=== PATIENT | male | born 1945 | race Caucasian/White ===

== ENCOUNTER 2016-08-05 20:12 | Inpatient (IN) | payer OTHER ==
--- NOTE | ~2016-08-05 | CT4 ---
[facility] Service of [facility] RADIOLOGY TEXT RESULTS PATIENT: ANA MEYER LOCATION: [place] [address] : [birth year] UNIT #: [id number] AGE: [address]: Rodolfo De Souza MD SEX: M ORDER DR: [id number] [place] [id number] I MR#: [id number] Acc #: [id number] NAME: ANA MEYER : 1945 SEX: M STUDY DATE/TIME: 08/05/2016 23:03 UNIT: SEDOF ROOM: [id number] STUDY DESCRIPTION: CT Abd and Pelv Wo Cont Attending Physician: Rodolfo De Souza M.D. Ordering Physician: Rodolfo Shane M.D. Primary Care Physician: Abhilash Cavazos M.D. MEDICAL IMAGING REPORT This report is preliminary unless electronic signature is present. EXAM CT abdomen and pelvis INDICATIONS Lower abdominal pain for [address] of the abdomen and pelvis without contrast. Coronal and sagittal reconstructions were obtained. This CT exam was performed with one or more of the following radiation dose reduction techniques: automatic control, adjustment of mA and/or kV according to patient size, and iterative reconstruction. COMPARISON None available. FINDINGS ABDOMEN: There is a moderate hiatal hernia containing the gastric fundus. Noncontrast evaluation of the liver, pancreas, spleen, adrenal glands, and kidneys are within normal limits. No urinary calculi. No hydronephrosis. There is a small bowel obstruction. The proximal small bowel is dilated measuring up to 3.5 cm. There is a gradual transition to decompressed small bowel in the right mid abdomen. No definitive transition point is identified. Patient does appear to have a small lipoma within the region of the transition. This small lipoma appears pedunculated measuring 1.2 x 1.0 cm. This is in the distal small bowel prior to the ileocecal valve. No evidence of abscess or perforation. There is a small volume of ascites. The colon is decompressed. The appendix is normal. [facility] RADIOLOGY TEXT RESULTS PATIENT: ANA MEYER LOCATION: [facility] 218-01 : [birth year] UNIT #: [id number] AGE: [address]: Rodolfo De Souza MD SEX: M ORDER DR: PELVIS: Bladder is unremarkable. There are small direct inguinal hernias bilaterally. IMPRESSION 1. Small bowel obstruction with the proximal small bowel measuring up to 3.5 cm. There is a gradual transition to decompressed small bowel in the right mid abdomen within the distal ileum. No complicating features such as abscess or perforation. 2. The does appear to be a small lipoma near the site of the transition within the small bowel, however, this lipoma does not appear to be large enough for a lead point. 3. Hiatal hernia. 4. Small volume of ascites. Dictated by... Tamir Bush M.D. THIS IS AN ELECTRONICALLY VERIFIED REPORT Tamir Bush M.D. at 08/07/2016 10:30 PM ARACELIS/miguelito TD: 08/06/2016 00:17 JOB #: [id number] MEDICAL IMAGING REPORT Page 1 of 1
--- NOTE | ~2016-08-05 | CR4 ---
[facility] A Service of [facility] RADIOLOGY TEXT RESULTS PATIENT: ANA MEYER LOCATION: [facility] 218-01 : [birth year] UNIT #: [id number] AGE: [address]: Rodolfo De Souza MD SEX: M ORDER DR: [id number] [facility] [address] [place], [place] [address] [id number] I MR#: [id number] Acc #: [id number] NAME: ANA MEYER : 1945 SEX: M STUDY DATE/TIME: 08/06/2016 15:59 UNIT: [facility] ROOM: 218 STUDY DESCRIPTION: CR Abdomen Flat Upright or Dec Attending Physician: Rodolfo De Souza M.D. Ordering Physician: Rodolfo De Souza M.D. Primary Care Physician: Abhilash Cavazos M.D. MEDICAL IMAGING REPORT This report is preliminary unless electronic signature is present EXAM Flat and upright views of the abdomen, 08/06/2016 INDICATIONS 70-year-old male with nausea, vomiting and pain, NG tube removed recently. Obstruction. Symptoms began 3 days ago. TECHNIQUE Flat and upright views of the abdomen were performed. Correlation is made with scanogram CT 08/05/2016. FINDINGS Postop changes of cholecystectomy are present. Residual oral contrast material in the colon. Supine image demonstrates dilated small bowel centrally, measuring up to 3.5-4 cm. There is air within the colon. Overall configuration and appearance is similar to the prior CT. This may reflect an incomplete small bowel obstruction, or small bowel ileus. No new mass effect. IMPRESSION 1. Dilatation of central small bowel persists. There is contrast within the colon. Imaging features may reflect an incomplete small bowel obstruction or small bowel ileus. No free air. Dictated by... Marlon Baker M.D. THIS IS AN ELECTRONICALLY VERIFIED REPORT Marlon Baker M.D. at 08/06/2016 8:43 PM TUAN/americo TD: 08/06/2016 18:28 STS. [facility] A Service of [facility] & [facility] RADIOLOGY TEXT RESULTS PATIENT: ANA MEYER LOCATION: [place] [address] : [birth year] UNIT #: [id number] AGE: [address]: Rodolfo De Souza MD SEX: M ORDER DR: JOB #: [id number] MEDICAL IMAGING REPORT Page 1 of 1 COPY
--- NOTE | ~2016-08-05 | DS ---
Unit #: [id number] #: [id number] Patient: ANA MEYER [id number] [address] [address] [id number] I MR#: [id number] NAME: ANA MEYER. ROOM: 218 Age: 70 Sex: M Admission Date: 08/06/2016 : 1945 Discharge Date: 08/07/2016 Attending Physician: Rodolfo De Souza M.D. Primary Care Physician: Abhilash Cavazos M.D. DISCHARGE SUMMARY DIAGNOSIS Partial small bowel obstruction. HOSPITAL COURSE The patient is a 70-year-old gentleman who presented with abdominal pain and distention. X-ray evaluation was consistent with small bowel obstruction. He was admitted to the hospital, started with NG tube decompression and hydrated. His hospital course was relatively benign. He was advanced with removal of his NG tube after KUB revealed contrast to his colon. He tolerated regular diet without difficulty, had return of bowel function. DISPOSITION The patient will be discharged home. CONDITION UPON DISCHARGE Good condition. DISCHARGE DIET He is to follow a regular diet as tolerated. ACTIVITY Activity levels were discussed. FOLLOW-UP He is to follow up with [facility] on a p.r.n. basis. DISCHARGE MEDICATIONS His regular home medications. Dictated by... Marianela Stewart/yani TD: 08/08/2016 13:03 JOB #: [id number] Unit #: [id number] #: [id number] Patient: ANA MEYER DISCHARGE SUMMARY Page 1 of 1 X Rodolfo De Souza MD DISCHARGE SUMMARY
--- NOTE | ~2016-08-05 | CO ---
Unit #: [id number] #: [id number] Patient: ANA MEYER [id number] [address] [place], [place] [address] [id number] I MR#: [id number] NAME: ANA MEYER. ROOM: 218 Age: 70 Sex: M Admission Date: 08/06/2016 : 1945 Attending Physician: Rodolfo De Souza M.D. Primary Care Physician: Abhilash Cavazos M.D. Consultation Date: 08/06/2016 CONSULTATION REPORT BRIEF HISTORY The patient is a 70-year-old gentleman who presents with intermittent abdominal pain, nausea, vomiting and some loose bowel movements. This has been going on for approximately 48 hours. He presented to the emergency room. No fevers or chills. No history of similar type pain. PAST MEDICAL HISTORY Thoracic aneurysm, gout and arthritis. PAST SURGICAL HISTORY Had a cholecystectomy. HOME MEDICATIONS 1. Multivitamin. 2. Allopurinol. 3. Prilosec. 4. Lipitor. 5. Glucosamine. 6. Metoprolol. SOCIAL HISTORY No smoking. No alcohol. FAMILY HISTORY Negative for GI malignancy. REVIEW OF SYSTEMS No cardiopulmonary complaints at this time. Else, 10 systems reviewed and negative. PHYSICAL EXAMINATION GENERAL: He is awake, alert, appropriate. VITAL SIGNS: Currently afebrile. HEENT: Unremarkable. NECK: Supple. No JVD. Trachea midline. LUNGS: Clear to auscultation. Bilateral breath sounds symmetric. CARDIOVASCULAR: Regular rate and rhythm. ABDOMEN: Mildly distended, but soft. There are no hernias and no masses palpable. EXTREMITIES: No clubbing, cyanosis, or edema. DIAGNOSTIC STUDIES LABORATORY RESULTS: Show a white count of 13, hemoglobin 14. Chemistries are normal. CT scan shows dilated small bowel. Unit #: [id number] #: [id number] Patient: ANA MEYER ASSESSMENT Partial small bowel obstruction. PLAN Recommend IV fluids, bowel rest. We will recheck abdominal series. We will advance to clears if tolerated. Dictated by... Rodolfo De Souza M.D. ANTHONY/janet TD: 08/06/2016 10:35 JOB #: [id number] CONSULTATION REPORT Page 1 of 1 X Rodolfo De Souza MD CONSULTATION REPORT
[~2016-08-05 20:12] MED LIST: ALLOPURINOL300 MG PO; BAYER CHEWABLE81 MG PO; CERTAGEN PO; GLUCOSAMIN-CHO1 EACH PO; LIPITOR PO; LIPITOR40 MG PO; LISINOPRIL PO; LORTAB 7.5-3251 EACH PO; LOSARTAN POTASS50 MG PO; MOBIC PO; MORGIDOX100 MG PO; NORCO1 TAB 10/3 PO; PRILOSEC PO; PRILOSEC40 MG PO; SILVADENE TOP
[2016-08-05] MEDS ORDERED: METOPROLOL SUCC50 MG PO (20:22)
[2016-08-05 21:13] LABS: BASOPHIL# 0.1 X10e3 (0-0.3); BASOPHIL% 0.6 % (0-2.5); EOSINOPHIL# 0.5 X10e3 (0-0.7); EOSINOPHIL% 3.5 % (0.0-7.0); HEMOGLOBIN 15.6 gm/dL (13.0-16.0); LYMPHOCYTE# 1.4 X10e3 (1.0-3.5); LYMPHOCYTE% 9.8 % (17.0-45.0); MEAN CELL VOLUME 83.4 FL (83-96); MEAN CORPUSCULAR HEMOGLOBIN 27.7 PG (28-34); MEAN CORPUSCULAR HGB CONC 33.2 g/dL (30-36); MEAN PLATELET VOLUME 7.8 FL (6.5-11.5); MONOCYTE# 1.1 X10e3 (0-1.0); MONOCYTE% 8.2 % (3.0-12.0); NEUTROPHIL# 10.8 X10e3 (1.5-7.1); NEUTROPHIL% 77.9 % (40-75); PLATELET COUNT 252 X10e3 (140-420); RED BLOOD COUNT 5.64 X10e (3.90-5.60); RED CELL DISTRIBUTION WIDTH 15.4 % (11.0-15.5); WHITE BLOOD COUNT 13.9 X10e3 (4.0-10.5)
[2016-08-05 21:15] LABS: DIFF IND NO
[2016-08-05 21:29] LABS: BILIRUBIN, DIRECT 0.2 mg/dL (0.0-0.2); BILIRUBIN,INDIRECT 0.6 mg/dL (0.0-0.9); BILIRUBIN,TOTAL 0.8 mg/dL (0.2-2.0); CALCIUM SERUM 9.7 mg/dL (8.4-10.2); CREATININE SERUM 1.4 mg/dL (0.6-1.4); GLOM FILT RATE Estimated 50.9 mL/min (>60); POTASSIUM 3.7 mmol/L (3.5-5.1); PROTEIN TOTAL SERUM 7.5 g/dL (6.0-8.3)
[2016-08-05 22:03] LABS: URINE SOURCE CLEAN CATCH
[2016-08-05 22:05] LABS: URINE APPEARANCE CLEAR; URINE BILIRUBIN NEG (NEG); URINE BLOOD NEG (NEG); URINE COLOR YELLOW; URINE GLUCOSE NEG (NORM); URINE KETONE NEG (NEG); URINE LEUKOCYTE ESTERASE NEG (NEG); URINE NITRATE NEG (NEG); URINE PROTEIN 1+ (NEG); URINE SPECIFIC GRAVITY >=1.030 (1.003-1.035)
[2016-08-05 22:08] LABS: MICRO INDICATED? NO
[2016-08-06 02:39] LABS: PROTHROMBIN TIME (PATIENT) 11.4 SECONDS (9.5-12.4)
[2016-08-06 02:46] LABS: PARTIAL THROMBOPLASTIN TIME 24.8 SECONDS (25.6-38.1)
[2016-08-07 06:34] LABS: HEMATOCRIT 40.5 % (38.0-50.0); MEAN CORPUSCULAR HEMOGLOBIN 27.1 PG (28-34); MEAN CORPUSCULAR HGB CONC 31.9 g/dL (30-36); RED BLOOD COUNT 4.76 X10e (3.90-5.60); RED CELL DISTRIBUTION WIDTH 15.4 % (11.0-15.5)
[2016-08-07 06:40] LABS: HEMOGLOBIN 12.9 gm/dL (13.0-16.0)
[2016-08-07 07:35] LABS: CALCIUM SERUM 8.3 mg/dL (8.4-10.2); CREATININE SERUM 1.2 mg/dL (0.6-1.4); GLOM FILT RATE Estimated 61.3 mL/min (>60); POTASSIUM 3.8 mmol/L (3.5-5.1)
[2016-08-07] MEDS ORDERED: ANTI-GAS180 MG PO (07:35)
== END 2016-08-07 11:18 | disposition home or self-care (01) | DRG 390 ==
LOC: SED 20:12 → SEDOF 08-06 00:23 → SED 08-06 00:23 → C4B 08-06 00:23 → C2A 08-06 00:23 → C4B 08-06 04:40 → C2A 08-06 04:40 → SEDOF 08-06 04:40 → C2A 08-06 07:40 → C4B 08-06 07:40 → C2A 08-07 11:18
PROVIDERS: Emergency Medicine; Surgery
DX: K56.60 Unspecified intestinal obstruction (principal); M10.9 Gout, unspecified; M19.90 Unspecified osteoarthritis, unspecified site; Z90.49 Acquired absence of other specified parts of digestive tract
CPT/HCPCS: 36415; 74020; 74176; 80048; 80076; 81003; 83690; 85025; 85027; 85610; 85730; 96361; 96374; 96375; 96376; 99285; C9113; J2405; J2550

== ENCOUNTER → 2016-10-17 | Outpatient (CLI) | payer OTHER ==
[~2016-10-17] MED LIST changes: +ANTI-GAS180 MG PO; +METOPROLOL SUCC50 MG PO
== END | disposition home or self-care (01) ==
LOC: SLAB 11:01
DX: E78.5 Hyperlipidemia, unspecified (principal)
CPT/HCPCS: 36415; 84460